=== PATIENT | female | born 1970 | race Caucasian/White ===

== ENCOUNTER 2025-05-05 14:25 | Emergency (ER) | payer BC, SELFPAY ==
[2025-05-05] VITALS (23 sets, daily range): BP systolic 114–157; BP diastolic 69–104; PULSE 55–64; RESP 12–20; TEMP 36.7; O2SAT 96–100; BMI 26.8
--- OUTSIDE RECORDS SUMMARY | 2025-05-05 14:28 | XMS_ITS | Clinical Summary ---
Author Organization [employer] [facility] [employer] [facility] Address [address] [place] [id number] Care Team Providers Care Etl Database Developer Name Role Phone Sabi Hammer MD Primary Care Provide r Allergies No known active allergies Medications valACYclovir (VALTREX) 1 gram tabletIndications: Cold sore Take 2 tabs (2 gms) oral at onset of cold sore and then repeat in 12 hours. 3 courses of treatment 12 tablet. 3 1 Active levothyroxine (SYNTHROID) 75 mcg tabletIndications: Hypothyroidism, unspecified type,Other specified hypothyroidism Take 1 Tablet (75 mcg) by mouth before breakfast. 90 Tablet 3 4 Active Active Problems Problem Noted Date Diagnosed Date Pap smear for cervical cancer screening 09/16/20 24 Overview (09/16/2024): 08/2024 NIL/HPV negative Plan: HPV-based testing due 08/2029 Excessive bleeding in premenopausal period 03/27 Overview (03/27/2018): Added automatically from request for surgery [id number] IUD threads lost 03/27/2018 Overview (03/27/2018): Added automatically from request for surgery [id number] Hypothyroidism 04/13/2016 Premenstrual tension syndromes 07/09/2007 Overview (07/09/2007): nauseated, bloated, starts one week before and finishes day of perioid, heavy flows Resolved Problems Problem Noted Date Diagnosed Date Resolved Date Unspecified Hypothyroidism 04/27/2009 0 04/13/2016 Encounters Date Type Department Care Team Description 05/05/2025 10:30 AM CDT Procedure Only [facility] [address] [place] [id number] Suraj Moody L Ac Acupuncture 05/05/2025 Nurse Triage [facility] [address] [facility] [address] Sabi Hammer MD Chest Pain 05/05/2025 Travel 03/19/2025 9:30 AM CDT Procedure Only [facility] [address] [place] [address] Suraj Moody L Ac Acupuncture 03/19/2025 Travel from Last 3 Months Immunizations Immunization Administration Dates Next Due AMB Influenza, IIV4 PF (=>6 mos Flulaval,Fluzone Fluarix)(Flu Clinic Only) 09/04/2019 COVID-19 VACCINE SPIKEVAX (M ODERNA 50MCG/0.5ML) 12YO+ PFS 08/21/2024 COVID-19 vaccine (Pfizer-Bio NTech 30mcg/0.3mL) 12YO+ BIVALENT PF, MDV 09/06/2022 COVID-19 vaccine (Community Cash-Bio NTech 30mcg/0.3mL) PF, MDV 09/21/2021,03/22/2021,02/22/2021 Influenza RIV4 (Age 18+ Year s) PRESERV FREE 09/21/2021 Influenza Virus, Unspecified 08/31/2017 Influenza, IIV3 (Age 6-35 mos) 10/16/2015,2008 Influenza, IIV3 (Age >=3 years) 09/18/20 14,09/23/2013,10/26/2009,2007,09/14/2000 Influenza, IIV4 08/21/2024, 3,09/06/2022,2019,08/30/2018,09/07/2016 MMR 07/10/1992 Td (Age >=7 Years) 07/09/1983 Td, Preservative Free (age > = 7 Years) 09/07/2016 Tdap 03/06/2021,04/20/2006 Family History Medical History Relation Name Comments Other Father obese Other Mother cholesterol Cancer-breast Other Mat. Great Aun t Cancer-breast Paternal Aunt Other Sister 2 cholesterol Cancer-ovarian No Family History Relation Name Status Comments Brother Alive Father Alive Mother Alive Other Paternal Aunt Sister 1 Alive Sister 2 Social History Tobacco Use Types Packs/Day Years Used Date Smoking Tobacco: Former Cigarettes 0.3 10 0 11/20/1987 - 11/20/1997 Smokeless Tobacco: Never Tobacco Cessation:Counseling Given: Yes Alcohol Use Standard Drinks/Week Comments Yes 5.8 (1 standard drink = 0.6 oz p ure alcohol) 7 drinks weekly PHQ-2 Answer Date Recorded PHQ-2 TOTAL SCORE 0 09/10/2024 Social Connections Answer Date Recorded Do you often feel lonely or isolated from those around you? 0 09/06/2024 Financial Resource Strain Answer Date R ecorded Difficulty of Paying Living Expenses 3 09/06/2024 Difficulty of Paying Living Expenses Not on file 09/06/2024 Food Insecurity Answer Date Recorded Do you worry your food will run out before you are able to buy more? 1 09/06/2024 Transportation Needs Answer Date Record ed Does lack of transportation keep you from medica l appointments? 1 09/06/2024 Does lack of transportation keep you from work, meetings or getting things that you need? 1 09/06/2024 Housing Stability Answer Date Recorded What is your housing situation today? 1 09/06/2024 Utilities Answer Date Recorded Do you have trouble paying f or utilities (for example, heat, electricity, water, phone)? 1 09/06/2024 Comments No Sex and Gender Information Value Date Recorded Sex Assigned at Not on file Legal Sex Female 5:24 AM JOB PLACEMENT COUNSELOR Gender Identity Not on file Sexual Orientation Not on file Obstetrics History Para Term AB IAB SAB Ectopic Multiple Livin g Live Births 3 2 2 1 1 2 Date Outcome GA Total Labor Labor/2nd/3rd Weight Sex Type Anes PTL Maki A1 A5 Name Clin Term Term SAB Last Filed Vital Signs Vital Sign Reading Time Taken Comments Blood Pressure 118/72 09/10/2024 9:12 AM CDT Pulse 50 09/10/2024 9:12 AM CDT Temperature 36.8 C (98.2 F) 02/05/2024 1:57 PM CDT Respiratory Rate 14 10/05/2018 10:48 AM JOB PLACEMENT COUNSELOR Oxygen Saturation 100% 09/10/2024 9:12 AM CDT Inhaled Oxygen Concentration - - Weight 64.4 kg (142 lb) 09/10/2024 9:12 AM CDT Height 155.3 cm (5' 1.15) 09/10/2024 9:12 AM CD T Body Mass Index 26.7 09/10/2024 9:12 AM CDT Plan of Treatment Health Maintenance Due Date Last Done Comments HIV for age 15-65 1984 Hepatitis C screening for ag e 18-79 1987 Hepatitis B series for 19+ ( 1 of 3 - 19+ 3-dose series) 1988 Pneumococcal series for age 50+ (1 of 1 - PCV) 2019 Zoster (shingles) series for age 50+ (1 of 2) 2019 BMI (ht and wt on same day) for age 18+ 09/10/2025 09/10/2024, 09/06/2022, 07/08/2021, Additional history exists Depression screening for age 12+ 09/10/2025 09/10/2024, 09/06/2022, 07/08/2021, Additional history exists Mammogram for age 45-75 11/22/2025 11/22/19, 10/16/2023, 10/10/2022, Additional history exists Lipids for age 45-75 09/10/2029 09/10/2024, 10/18/2023, 09/06/2022, Additional history exists Pap test for age 21-65 09/10/2029 , 07/23/2020, 06/08/2017, Additional history exists Colonoscopy through age 75 02/17/203102/17, 02/17/2021, 02/03/2011 Tetanus booster 03/06/2031 03/06/2021, 08/20, 04/20/2006, Additional history exists Tdap Completed 03/06/2021, 04/20/2006 COVID-19 vaccine series Completed 08/21/20 24, 09/13/2023, 09/06/2022, Additional history exists Influenza Vaccine Completed 08/21/2024, , 09/06/2022, Additional history exists Medical Devices Explanted Type Area Mid Wife Device Identifier Shelf Expiration Date Model / Serial / Lot Miremeli Explanted:Qty: 1 on 04/09/2018 at [facility] N/A: Uterus / / - Procedures Procedure Name Priority Date/Time Associated Diagnosis Comments ACUPUNCTURE PLAN OF CARE Routine 05/05/2025 10:20 AM CDT Other low back pain Chronic pain of right hip ACUPUNCTURE PLAN OF CARE Routine 03/21/2025 11:27 AM CDT Other low back pain Chronic pain of right hip XR MAMMO ISABEL BILAT SCREEN Routine 11/22/2024 9:52 AM JOB PLACEMENT COUNSELOR Visit for screening mammogram LIPID PANEL W REFLEX MEASURED LDL Routine 09/10/2024 10:26 AM CDT Lipid screening DIRT SHOVELER THIN PREP PAP AND HPV DNA - AGE 25 AND OVER ([facility]) Routine 09/10/2024 10:10 AM CDT Screening for cervical cancer COLONOSCOPY 02/17/2021 7:21 AM CDT from Last 3 Months or Most Recently Relevant to Health Maintenance Results * XR MAMMO ISABEL BILAT SCREEN (11/22/2024 9:52 AM JOB PLACEMENT COUNSELOR) Anatomical Region Laterality Modality BREASTS, Breast Left, Breast Right Bilateral Mammography Impressions 11/22/2024 3:17 PM JOB PLACEMENT COUNSELOR There is no radiographic evidence for malignancy. Recommend annual mammograms. MAMMOGRAM ASSESSMENT: ACR 1 Negative PATIENTS: You will also receive a letter with your examination results in an easy to read format. If you have questions about your results, please contact your referring provider. Narrative 11/22/2024 3:17 PM JOB PLACEMENT COUNSELOR For Patients: As a result of the Cures Act, medical imaging exams and procedure reports are released immediately into your electronic medical record. You may view this report before your referring provider. If you have questions, please contact your health care provider. XR MAMMO ISABEL BILAT SCREEN [[id number]] CLINICAL HISTORY: This is an asymptomatic 54 y.o. patient. INDICATION FOR EXAM: Mammogram Screening. TECHNIQUE: CC & MLO views were obtained. This study was evaluated with the assistance of Computer-Aided Detection. Breast Tomosynthesis was used in interpretation. COMPARISON FILM: Yes 10/16/23 [facility] 10/10/22 [facility] FINDINGS: There are scattered areas of fibroglandular density. There are no dominant masses, suspicious micro calcifications or areas of architectural distortion. us Sabi Hammer MD MAMMO Final Result * (ABNORMAL) LIPID PANEL W REFLEX MEASURED LDL (09/10/2024 10:26 AM CDT) CHOLESTEROL, TOTAL 247(H) <200 mg/dL [facility] HDL CHOLESTEROL 92 > OR = 50 mg/dL [facility] TRIGLYCERIDES 69 <150 mg/dL [facility] LDL-CHOLESTEROL 139(H) mg/dL (calc) [facility] Comment: Reference range: <100 Desirable range <100 mg/dL for primary prevention; <70 mg/dL for patients with CHD or diabetic patients with > or = 2 CHD risk factors. LDL-C is now calculated using the Manuel-Mg calculation, which is a validated novel method providing better accuracy than the Friedewald equation in the estimation of LDL-C. Manuel SS et al. PHUC. 2013;310(19): 1015-2671 (http://education.SOAK (Smart Operational Agricultural toolKit).TSB/faq/QVA225) CHOL/HDLC RATIO 2.7 <5.0 (calc) [facility] NON HDL CHOLESTEROL 155(H) <130 mg/dL (calc) [facility] Comment: For patients with diabetes plus 1 major ASCVD risk factor, treating to a non-HDL-C goal of <100 mg/dL (LDL-C of <70 mg/dL) is considered a therapeutic option. Blood BLOOD SPECIMEN / Unknown 09/10/2024 10:26 AM CDT 09/10/2024 10:27 AM CDT Narrative [facility] - 09/11/2024 4:54 AM CDT SPLIT 09/10/2024 FROM [id number] FASTING:YES FASTING: YES Sabi Hammer MD CHEMISTRY Final Result [facility] [address] [place] [address], [facility] [address] [place] [address] * DIRT SHOVELER THIN PREP PAP AND HPV DNA REFLEX HPV 16/18 - AGE 25 AND OVER ([facility]) [[id number]] (09/10/2024 10:10 AM CDT) CLINICAL INFORMATION [facility] Comment:None given LMP [facility] Comment:YEARS AGO PREV. PAP [facility] Comment:WNL PREV. BX [facility] Comment:NA SOURCE DIRT SHOVELER [facility] Comment:Cervix STATEMENT OF ADEQUACY [facility] Comment: Satisfactory for evaluation. Endocervical/transformation zone component present. INTERPRETATION/RESU LT [facility] Comment: Cytology Results: Negative for intraepithelial lesion or malignancy. COMMENT [facility] Comment: This Pap test has been evaluated with computer assisted technology. SECURITY GUARD DISPATCHER [facility] Comment: ESL, CT(ASCP) CT Screening Location: [address] [address] THINPREP TIS PAP ALWAYS MESSAGE [facility] Comment: EXPLANATORY NOTE: The Pap is a screening test for cervical cancer. It is not a diagnostic test and is subject to false negative and false positive results. It is most reliable when a satisfactory sample, regularly obtained, is submitted with relevant clinical findings and history, and when the Pap result is evaluated along with historic and current clinical information. HPV HIGH RISK Not Detected NOT DETECTED [facility] Comment: Not Detected High Risk HPV types (16,18,31,33,35,39,45,51,52, 56,58,59,66,68) were not detected. Other HPV types which cause anogenital lesions may be present. The significance of the other types of HPV in malignant processes has not been established. Methodology: Real Time PCR Other (Cervical) 09/10/2024 10:10 AM CDT 09/11/2024 3:42 AM CDT Narrative [facility] [place] - 09/14/2024 11:06 AM CDT SPECIMEN COLLECTED AT PROVIDER OFFICE. us Sabi Hammer MD PATHOLOGY/CYTOLOGY [facility] Result [facility] [place] [address] [place] [address], [facility] [address] [place] [address] * COLONOSCOPY (02/17/2021 7:21 AM CDT) 02/17/2021 7:21 AM CDT Narrative Transcriptions Manuel Negron MD - 02/17/2021 8:34 AM CDT Patient Name: Nancy Matos Procedure Date: 02/17/2021 Gender: Female Date of : 1970 Admit Type: Outpatient Procedure: Colonoscopy Proceduralist: Manuel Negron MD , Sandra Ruiz, RN(Nurse), Marie Plunkett (Nurse) Indications/Pre-Op Diagnosis: Screening for colorectal malignant neoplasm, Last colonoscopy: January 2011 Medications: Fentanyl 200 micrograms IV, Midazolam 4 mgIV, The level of sedation administered wasmoderate Procedure Description: The patient had risks, benefits and alternatives explained to andgave informed consent. The patient had a stable cardiopulmonary status and judged an adequate candidate for conscious sedation. The [id number] was passed through the anus and advanced tothe cecum, identified by appendiceal orifice and ileocecal valve. The colonoscopy was performed without difficulty. The patient toleratedthe procedure well. The quality of the bowel preparation was good. The ileocecal valve, appendiceal orifice, and rectum were photographed. Complications: No immediate complications. Estimated Blood Loss & Specimen: Estimated blood loss: none. Specimen collected - None Findings: The perianal and digital rectal examinations were normal. The entire examined colon appeared normal on direct and retroflexion views. Impressions/Post-Op Diagnosis: - The entire examined colon is normal on direct and retroflexionviews. - No specimens collected. Recommendation: - Patient has a contact number available for emergencies. The signsand symptoms of potential delayed complications were discussed with the patient. Return to normal activities tomorrow. Written discharge instructions were provided to the patient. - Resume previous diet. - Continue present medications. - Repeat colonoscopy in 10 years for screening purposes. Moderate Sedation: Moderate (conscious) sedation was administered by the endoscopy nurse and supervised by the endoscopist. The following parameters were monitored: oxygen saturation, heart rate, respiratory rate, blood pressure, adequacy of pulmonary ventilation and reponse to care. Please refer to the patient's medical record flowsheets and nursing notes for moderate sedation details. Total physician intraservice time was 23 minutes. Manuel Negron MD 02/17/2021 8:34:23 AM This report has been signed electronically. Note Initiated On: 02/17/2021 7:21 AM Procedure Code(s): --- Professional --- 83296, Colonoscopy, flexible; diagnostic, including collection of specimen(s) bybrushing or washing, when performed (separateprocedure) Diagnosis Code(s): --- Professional --- Z12.11, Encounter for screening formalignant neoplasm of colon CPT copyright 2019 [employer]. All rights reserved. The codes documented in this report are preliminary and upon salesperson furs reviewmay be revised to meet current compliance requirements. Scope In: 8:06:47 AM Scope Withdrawal Time 0 hours 11 minutes 57 seconds Scope Out: 8:27:47 AM us Manuel Negron MD PROCEDURE ORD Final Res ult from Last 3 Months or Most Recently Relevant to Health Maintenance Insurance [facility] AD[facility] Advance Directives * Full Code (Latest Code Status on File) Date Activated Date Inactivated Comments 04/09/2018 8:57 AM 04/09/2018 4:07 PM Care Teams Etl Database Developer Relationship Specialty Start Date End Date Sabi Hammer MD [address] [place] [address] PCP - General Family Practice 03/15/11
--- NOTE | 2025-05-05 14:38 | ED_ITS ---
HPI - Chest Pain General Time Seen by Provider: 14:39 Date Seen: 05/05/25 Chief Complaint: Chest Pain Stated Complaint: Chest pain Time Seen by Provider: 05/05/25 14:38 Source: patient and RN notes reviewed Mode of arrival: ambulatory Limitations: no limitations History of Present Illness HPI narrative: Nancy is a very pleasant 55-year-old female healthy who enjoys running comes to the ER reporting 1 week of extreme fatigue. Notes that this did occur after a recent trip to [place] in which she was very active and sharing a house with others. She notes that since her return she has been very tired throughout the day in spite of being able to sleep. She has also had a mild headache and has felt ?sore? but denies any fever, fever cough cold congestion. Reports of chest pain to nursing staff about intermittent back and chest pain but denies chest pain to this examiner. Has not experienced any diarrhea or vomiting and no fever. Yesterday she thought maybe her vision was a little bit blurry but does not report that today. Her headache comes and goes and this is unusual for her. She normally likes to go running and has not noticed any decreased ability to do that. Denies any recent tick bites, does take Synthroid, no other medications. No dysuria hematuria. History of uterine ablation, has experienced night sweats but is not entirely sure if she is through menopause at this time. No other ill contacts. Related Data Home Medications ?Medication ?Instructions ?Recorded ?Confirmed levothyroxine 75 mcg tablet 75 mcg PO DAILY 05/05/25 0 05/05/25 Allergies Allergy/AdvReac Type Severity Reaction Status Date / Time No Known Drug Allergies Allergy Verified 05/05/25 14:31 Review of Systems Status of ROS Reports: 10 or more systems reviewed and unremarkable except as noted in History and below Const Reports: fatigue; Denies: fever or chills Eyes Reports: blurry vision ENMT Denies: throat pain or nasal congestion Cardio Denies: chest pain, palpitations, swelling of feet/ankles, lightheadedness or shortness of breath with exertion Resp Denies: shortness of breath or cough GI Denies: abdominal pain Denies: painful urination or urinary frequency Integ/Breast Reports: rash Neuro Reports: headache; Denies: numbness in extremities Endo Reports: fatigue Exam Narrative Exam Narrative: Alert and oriented. Very pleasant in no acute distress. Nontoxic in appearance with normal mentation and speech. Face symmetrical. Good color. Mucous membranes wet. Neck is supple. No lymphadenopathy. Heart with a bradycardic rate but normal rhythm. No additional heart sounds or murmurs are noted. Lungs are clear bilaterally. Abdomen soft nontender. Lower extremities without edema. No erythema. No calf tenderness. Moving all extremities. Significant other present seems very loving and supportive. Const Vital Signs, click to edit/add: Vital Signs - 24 hr 05/05/25 14:28 05/05/25 14:44 05/05/25 14:45 Temperature 98.0 F Pulse Rate 60 63 Pulse Rate [Pulse Oximeter] 60 Respiratory Rate 16 16 16 Blood Pressure 143/104 H Blood Pressure [Right Upper Arm] 157/95 H Pulse Oximetry 98 100 100 Oxygen Delivery Method Room Air 05/05/25 14:47 05/05/25 15:00 05/05/25 15:02 Temperature Pulse Rate 60 59 L 63 Pulse Rate [Pulse Oximeter] Respiratory Rate 16 18 15 Blood Pressure 151/101 H 139/93 H Blood Pressure [Right Upper Arm] Pulse Oximetry 98 97 98 Oxygen Delivery Method 05/05/25 15:15 05/05/25 15:20 05/05/25 15:30 Temperature Pulse Rate 61 58 L 58 L Pulse Rate [Pulse Oximeter] Respiratory Rate 12 14 Blood Pressure Blood Pressure [Right Upper Arm] Pulse Oximetry 100 97 96 Oxygen Delivery Method 05/05/25 15:35 05/05/25 15:45 05/05/25 15:49 Temperature Pulse Rate 60 62 57 L Pulse Rate [Pulse Oximeter] Respiratory Rate 20 16 15 Blood Pressure Blood Pressure [Right Upper Arm] Pulse Oximetry 97 96 96 Oxygen Delivery Method 05/05/25 16:00 05/05/25 16:15 05/05/25 16:46 Temperature Pulse Rate 58 L 58 L 57 L Pulse Rate [Pulse Oximeter] Respiratory Rate 16 Blood Pressure 124/85 Blood Pressure [Right Upper Arm] Pulse Oximetry 97 98 98 Oxygen Delivery Method 05/05/25 16:47 05/05/25 17:00 05/05/25 17:02 Temperature Pulse Rate 64 58 L 57 L Pulse Rate [Pulse Oximeter] Respiratory Rate 20 16 15 Blood Pressure 114/76 Blood Pressure [Right Upper Arm] Pulse Oximetry 96 96 98 Oxygen Delivery Method 05/05/25 17:03 05/05/25 17:15 05/05/25 17:17 Temperature Pulse Rate 55 L 57 L 56 L Pulse Rate [Pulse Oximeter] Respiratory Rate 16 14 14 Blood Pressure 118/69 Blood Pressure [Right Upper Arm] Pulse Oximetry 97 97 98 Oxygen Delivery Method 05/05/25 17:30 05/05/25 17:32 Temperature Pulse Rate 62 58 L Pulse Rate [Pulse Oximeter] Respiratory Rate 16 17 Blood Pressure 134/100 H Blood Pressure [Right Upper Arm] Pulse Oximetry 98 98 Oxygen Delivery Method Course Course ED Course: Differential diagnosis includes but is not limited to viral syndrome such as mono, West Nile, Lyme, hypothyroidism, COVID/influenza/RSV/as well as atypical angina. Will place IV and check CBC, comprehensive, CRP, Lyme, triple viral swab, creatinine kinase, West Nile, mono, TSH, vitamin-D and magnesium as well as EKG and place patient on phototypesetting equipment monitor. Reevaluation(s) Reevaluation #1: Patient has remained stable in the ED. laboratory values have been reassuring. Pulse has been from the mid 50s up into high 60s. Afebrile at this time. Vital Signs Vital signs: Initial Vital Signs Temperature 98.0 F 05/05/25 14:28 Temperature Source Temporal Artery Scan 05/05/25 14:28 Pulse Rate 60 05/05/25 14:28 Respiratory Rate 16 05/05/25 14:28 Blood Pressure 157/95 H 05/05/25 14:28 Blood Pressure Mean 115 H 05/05/25 14:28 Blood Pressure Position Sitting 05/05/25 14:28 Pulse Oximetry 98 05/05/25 14:28 Oxygen Delivery Method Room Air 05/05/25 14:28 Vital Signs Temperature 98.0 F 05/05/25 14:28 Pulse Rate 60 05/05/25 14:28 Respiratory Rate 16 05/05/25 14:28 Blood Pressure 157/95 H 05/05/25 14:28 Pulse Oximetry 98 05/05/25 14:28 Oxygen Delivery Method Room Air 05/05/25 14:28 Temperature 98.0 F 05/05/25 14:28 Pulse Rate 58 L 05/05/25 17:32 Respiratory Rate 17 05/05/25 17:32 Blood Pressure 134/100 H 05/05/25 17:32 Pulse Oximetry 98 05/05/25 17:32 Oxygen Delivery Method Room Air 05/05/25 14:28 MDM - Chest Pain MDM Narrative Medical decision making narrative: 1. Fatigue -at this time I a.m. at a loss to explain patient's fatigue. With the headache and fatigue I do lean more toward a viral source such as West Nile. West Nile and Lyme are currently pending. Patient's magnesium vitamin-D are normal. Patient is currently on Synthroid and TSH is within normal limits. White count electrolyte panel kidney function all normal. [place] screen is negative. Her CK is within normal limits. 2. Atypical chest pain-patient has been experiencing occasional pain in her back but has been very tolerant of her running. No chest pain or shortness of breath when she is doing that. Her EKG does show a partial right bundle but otherwise within normal limits and her troponin is negative. I do not feel the need to do more than 1 troponin as this is been ongoing for the past couple weeks. 3. Disposition-home at this time. Urinalysis will be left prior to departure. Will contact patient for any abnormalities of urinalysis West Nile or Lyme. Note blood pressure elevation upon arrival.-blood pressure normal during patient's stay in the ED. Lab Data Attestation: I reviewed the patient's lab results. Labs: Lab Results 05/05/25 05/05/25 05/05/25 Range/Units 14:54 15:00 15:10 WBC 6.09 (4.50-11.00) K/uL RBC 4.57 (4.00-5.20) m/uL Hgb 13.9 (12.0-16.0) gm/dL Hct 41.5 (33.0-51.0) % MCV 91 (80-100) fL MCH 30 (26-34) pg MCHC 34 (32-36) gm/dL RDW Coeff of Konstantin 13.3 (11.5-15.5) % Plt Count 218 (140-440) K/uL Neut % (Auto) 54.4 (42.0-72.0) % Lymph % (Auto) 33.3 (20-44) % [place] % (Auto) 9.2 (0.0-11.0) % Eos % (Auto) 2.0 (0.0-7.0) % Baso % (Auto) 0.3 (0.0-3.0) % Neut # (Auto) 3.31 (1.7-7.0) K/uL Lymph # (Auto) 2.03 (0.90-2.90) K/uL [place] # (Auto) 0.60 (0.00-0.90) K/UL Eos # (Auto) 0.12 (0.00-0.50) K/uL Baso # (Auto) 0.02 (0.00-0.30) K/uL Abs Immat Gran (auto) 0.05 (0.00-0.30) K/uL Imm/Tot Granulo (auto) 0.8 % Sodium 139 (135-149) mmol/L Potassium 4.1 (3.6-5.1) mmol/L Chloride 102 (96-114) mmol/L Carbon Dioxide 29 (20-32) mmol/L Anion Gap 8 (7-15) mEq/L BUN 21 (7-30) mg/dL Creatinine 0.9 (0.5-1.5) mg/dL Estimated Creat Clear 52.67 Estimated GFR 75 ml/min Glucose 109 (60-115) mg/dL Calcium 9.5 (8.4-10.6) mg/dL Magnesium 1.9 (1.5-2.6) mg/dL Total Bilirubin 0.7 (0.1-1.5) mg/dL AST 43 H (12-35) U/L ALT 21 (4-35) U/L Alkaline Phosphatase 53 (40-150) U/L Total Creatine Kinase 103 (41-117) U/L C-Reactive Protein < 0.5 L (0.5-1.0) mg/dL Total Protein 7.7 (6.0-8.3) g/dL Albumin 4.7 (3.3-5.0) g/dL 25-OH Vitamin D Total 41 (30-80) ng/mL TSH 1.950 (0.270-4.200) uIU/mL SARS-CoV-2 (PCR) Negative SARS-CoV-2 (Negative) Monoscreen Negative (Negative) Influenza Type A (PCR) Negative PCR FLU A (Negative) Influenza Type B (PCR) Negative PCR FLU B (Negative) RSV (PCR) Negative PCR RSV (Negative) Lab Acknowledgement POC Troponin I 0.00 L (0.01-0.04) ng/ml 05/05/25 05/05/25 Range/Units 16:31 16:34 WBC (4.50-11.00) K/uL RBC (4.00-5.20) m/uL Hgb (12.0-16.0) gm/dL Hct (33.0-51.0) % MCV (80-100) fL MCH (26-34) pg MCHC (32-36) gm/dL RDW Coeff of Konstantin (11.5-15.5) % Plt Count (140-440) K/uL Neut % (Auto) (42.0-72.0) % Lymph % (Auto) (20-44) % [place] % (Auto) (0.0-11.0) % Eos % (Auto) (0.0-7.0) % Baso % (Auto) (0.0-3.0) % Neut # (Auto) (1.7-7.0) K/uL Lymph # (Auto) (0.90-2.90) K/uL [place] # (Auto) (0.00-0.90) K/UL Eos # (Auto) (0.00-0.50) K/uL Baso # (Auto) (0.00-0.30) K/uL Abs Immat Gran (auto) (0.00-0.30) K/uL Imm/Tot Granulo (auto) % Sodium (135-149) mmol/L Potassium (3.6-5.1) mmol/L Chloride (96-114) mmol/L Carbon Dioxide (20-32) mmol/L Anion Gap (7-15) mEq/L BUN (7-30) mg/dL Creatinine (0.5-1.5) mg/dL Estimated Creat Clear Estimated GFR ml/min Glucose (60-115) mg/dL Calcium (8.4-10.6) mg/dL Magnesium (1.5-2.6) mg/dL Total Bilirubin (0.1-1.5) mg/dL AST (12-35) U/L ALT (4-35) U/L Alkaline Phosphatase (40-150) U/L Total Creatine Kinase (41-117) U/L C-Reactive Protein (0.5-1.0) mg/dL Total Protein (6.0-8.3) g/dL Albumin (3.3-5.0) g/dL 25-OH Vitamin D Total (30-80) ng/mL TSH (0.270-4.200) uIU/mL SARS-CoV-2 (PCR) (Negative) Monoscreen (Negative) Influenza Type A (PCR) (Negative) Influenza Type B (PCR) (Negative) RSV (PCR) (Negative) Lab Acknowledgement Test Added Test Added POC Troponin I (0.01-0.04) ng/ml Imaging Data Chest x-ray: Attestation: I have reviewed the pertinent imaging results. My impression: I do not note any acute findings. Radiologist's impression: Cardiovascular and mediastinum: Heart size and vasculature are normal in caliber and appearance. Lungs and pleural space: Lungs are clear. No sign of infiltrate or mass. No sign of pleural effusion. No pneumothorax. Bones and soft tissues: No acute findings. ECG Data Attestation: I personally reviewed and interpreted this ECG as follows: ECG interpretation date: 05/05/25 Interpretation: EKG by my read shows sinus bradycardia at a rate of 54. There is an incomplete right bundle-branch block with out any previous EKGs for comparison. No acute ST or T-wave changes. QT and GA intervals within normal limits. Discharge Plan Discharge Clinical Impression: Fatigue Qualifiers: Fatigue type: unspecified Qualified Code(s): R53.83 - Other fatigue Patient Disposition: Home, Self-Care Condition: Improved Additional Instructions: Recommend rest as needed.-maybe cutting your runs an activity in half until you are feeling better. You will be called if your urine is abnormal tonight. Labs that have not come back at this time include West Nile and Lyme. You tested negative for mono, influenza, RSV and COVID. Your vitamin-D was normal at 41 and your magnesium was normal at 2.0. Electrolyte panel was normal with a potassium of 4.1. Kidney function normal. White count is normal as is hemoglobin. Prescriptions: No Action levothyroxine 75 mcg tablet 75 mcg PO DAILY Follow Up/Referrals: Sabi Hammer MD [Primary Care Provider, [facility]] Stand Alone Forms: IMScouting Info Instructions
--- NOTE | 2025-05-05 14:54 | CRLHL7_ITS ---
For Patients: As a result of the Century Cures Act, medical imaging exams and procedure reports are released immediately into your electronic medical record. You may view this report before your referring provider. If you have questions, please contact your health care provider. Indication: Fatigue Technique: Chest 1 view Comparison: None Findings/Impression: Cardiovascular and mediastinum: Heart size and vasculature are normal in caliber and appearance. Lungs and pleural space: Lungs are clear. No sign of infiltrate or mass. No sign of pleural effusion. No pneumothorax. Bones and soft tissues: No acute findings. Dictated by Negrito eParson MD @ 05/05/2025 3:18:34 PM (Electronically Signed)
[2025-05-05 15:29] LABS: Basophils Absolute Auto 0.02 K/uL (0.00-0.30); Basophils Percent Auto 0.3 % (0.0-3.0); Eosinophils Absolute Auto 0.12 K/uL (0.00-0.50); Hematocrit 41.5 % (33.0-51.0); Hemoglobin* 13.9 gm/dL (12.0-16.0); Immature Granulocytes Abs Auto 0.05 K/uL (0.00-0.30); Immature Granulocytes Pct Auto 0.8 %; Lymphocytes Absolute Auto 2.03 K/uL (0.90-2.90); Lymphocytes Percent Auto 33.3 % (20-44); Mean Corpuscular HGB Conc 34 gm/dL (32-36); Mean Corpuscular Hemoglobin 30 pg (26-34); Mean Corpuscular Volume 91 fL (80-100); Monocytes Percent Auto 9.2 % (0.0-11.0); Neutrophils Absolute Auto 3.31 K/uL (1.7-7.0); Neutrophils Percent Auto 54.4 % (42.0-72.0); Platelet Count* 218 K/uL (140-440); RDW Coefficient of Variation % 13.3 % (11.5-15.5); Red Blood Count 4.57 m/uL (4.00-5.20); White Blood Count* 6.09 K/uL (4.50-11.00)
[2025-05-05 15:34] LABS: Slide Review Reflex No
[2025-05-05 15:47] LABS: Chloride* 102 mmol/L (96-114)
[2025-05-05 15:48] LABS: Albumin* 4.7 g/dL (3.3-5.0); Potassium* 4.1 mmol/L (3.6-5.1); Sodium* 139 mmol/L (135-149)
[2025-05-05 15:50] LABS: Blood Urea Nitrogen* 21 mg/dL (7-30); Creatinine* 0.9 mg/dL (0.5-1.5); Est. Creatinine Clearance* 52.67; Estimated Glomerular Filt Rate 75 ml/min
[2025-05-05 15:51] LABS: Alanine Aminotransferase* 21 U/L (4-35); Alkaline Phosphatase* 53 U/L (40-150); Anion Gap 8 mEq/L (7-15); Aspartate Amino Transferase* 43 U/L (12-35); Bilirubin Total* 0.7 mg/dL (0.1-1.5); Calcium* 9.5 mg/dL (8.4-10.6); Carbon Dioxide* 29 mmol/L (20-32); Creatine Kinase* 103 U/L (41-117); Glucose* 109 mg/dL (60-115); Magnesium* 1.9 mg/dL (1.5-2.6); Total Protein* 7.7 g/dL (6.0-8.3)
[2025-05-05 16:06] LABS: PCR FLU A Negative PCR FLU A (Negative); PCR FLU B Negative PCR FLU B (Negative); PCR RSV Negative PCR RSV (Negative); SARS PCR* Negative SARS-CoV-2 (Negative)
[2025-05-05 16:12] LABS: C Reactive Protein* < 0.5 mg/dL (0.5-1.0)
[2025-05-05 16:48] LABS: Mono Screen* Negative (Negative)
[2025-05-05 17:11] LABS: Vitamin D 25 Hydroxy* 41 ng/mL (30-80)
[2025-05-07 13:05] LABS: Lyme ELISA Reflex 0.32 IV (<=0.90)
== END 2025-05-05 18:06 | disposition home or self-care (01) ==
PROVIDERS: Emergency Provider Family Medicine; PCP Family Medicine
DX: R53.83 Other fatigue (principal)
CPT/HCPCS: 36415; 71045; 80050; 80053; 81001; 82306; 82550; 83735; 84443; 84484; 85025; 86140; 86308; 86618; 86789; 87631; 99284